=== PATIENT | female | born 1990 | race Caucasian/White ===

== ENCOUNTER 2018-06-29 12:11 | Emergency (ER) | payer OTHER ==
[~2018-06-29] VITALS: Ht 157.5 cm; Wt 70.3 kg
[~2018-06-29 12:11] MED LIST: CLEOCIN HCL150 MG PO; IBUPROFEN 800800 M1 PO; ULTRAM 50MG TAB50 MG PO
[2018-06-29 12:57] VITALS: BP 164/117
== END 2018-06-29 13:00 | disposition short-term general hospital (02) ==
LOC: ER 12:11
DX: Z34.83 Encounter for supervision of other normal pregnancy, third trimester (principal); Z88.1 Allergy status to other antibiotic agents

== ENCOUNTER 2021-03-04 18:26 | Emergency (ER) | payer OTHER ==
[~2021-03-04] VITALS: Ht 157.5 cm; Wt 54.4 kg
[2021-03-04 21:05] VITALS: BP 126/87
== END 2021-03-04 21:05 | disposition home or self-care (01) ==
LOC: ER 18:26
DX: R51.9 Headache, unspecified (principal); R11.0 Nausea; R09.89 Other specified symptoms and signs involving the circulatory and respiratory systems; Z88.1 Allergy status to other antibiotic agents